=== PATIENT | male | born 1950 | race Caucasian/White ===

== ENCOUNTER 2023-02-08 10:41 | Emergency (ER) | payer MEDICARE, BC, SELFPAY ==
[2023-02-08] VITALS (12 sets, daily range): BP systolic 149–178; BP diastolic 75–93; PULSE 59–73; RESP 14; TEMP 36.4; O2SAT 97–100; BMI 30.4
[2023-02-08 11:11] LABS: Bilirubin Urine UA NEGATIVE (NEGATIVE); Glucose Urine UA NEGATIVE (Negative); Ketones Urine UA NEGATIVE (NEGATIVE); Leukocyte Esterase Urine UA NEGATIVE (NEGATIVE); Nitrite Urine UA NEGATIVE (Negative); Occult Blood Urine UA 2+ (Negative); Protein Urine UA 3+ (Negative); Specific Gravity Urine UA 1.025 (1.000-1.035); Urobilinogen Urine UA 0.2 E.U./dL (0.2)
[2023-02-08 11:14] LABS: Appearance Urine UA OTHER; Color Urine UA RED; RBC Urine >100/HPF (0-5/HPF); WBC Urine 5-10/HPF (0-5/HPF)
[2023-02-08 11:15] LABS: Amorphous Sediment Urine 1+; Bacteria Urine Occasional (0-1); Culture Indicated Urine Specimen Cultured; Squamous Epithelial Cell Urine 1-5 /HPF (0-5/HPF)
--- NOTE | 2023-02-08 11:26 | ED.GENADULT ---
HPI - General Adult General Chief complaint: Urogenital-Male Stated complaint: bleeding possibly from prostate tumor Time Seen by Provider: 02/08/23 10:57 Source: patient Mode of arrival: Ambulatory Limitations: no limitations History of Present Illness HPI narrative: Patient is a 72-year-old male. Not on anticoagulation who is here for evaluation of hematuria. He has had some issues with his bladder and prostate in the past. He is new to the area here. He moved to the area did drive quite a bit yesterday. Does admit that he did not drink a lot of water so that he did not have to urinate as often. He is not having any abdominal pain. He does urinate frequently but does feel like he empties his bladder. No fevers. He did have a cystoscopy in the past this was in September. There was some discussion about a UroLift but since he was moving he felt that he would just follow-up with urology locally. This morning he was at breakfast. He states that he urinated there was quite a bit blood. No clots no pain with urination. He is urinated get since then and had quite a bit of clots. Related Data Previous Rx's Medication Instructions Recorded cephalexin 500 mg capsule 500 mg PO BID 5 days #10 caps 02/08/23 Allergies Allergy/AdvReac Type Severity Reaction Status Date / Time No Known Drug Allergies Allergy Verified 02/08/23 10:53 Review of Systems Review of Systems ROS Unobtainable: All systems reviewed & are unremarkable except as noted in HPI and below Patient History Medical History BPH (benign prostatic hyperplasia) Social History Smoking Status: Never smoker Smoking Status: Never smoker alcohol intake frequency: 0-2 drinks per day Substance Use Type: does not use Exam Initial Vital Signs Initial Vital Signs: Vital Signs Temperature 97.5 F L 02/08/23 10:48 Pulse Rate 66 02/08/23 10:48 Respiratory Rate 14 02/08/23 10:48 Blood Pressure 175/91 H 02/08/23 10:48 Pulse Oximetry 100 02/08/23 10:48 Oxygen Delivery Method Room Air 02/08/23 10:48 Const General: cooperative, comfortable and No ill appearing HENMO Head: normal to inspection and normocephalic Resp Effort & Inspection: normal respiratory effort Auscultation: clear to auscultation bilaterally Cardio Rate: regular rate Rhythm: regular rhythm GI Inspection: normal to inspection Palpation: soft, No firm and No tender Skin General: no rashes or lesions noted Neuro General: patient alert, patient awake, patient oriented x3 and moves all extremities Extrem General: normal to inspection and capillary refill normal Course Orders Ordered: ED Orders 02/08/23 10:55 Urinalysis and Microscopic Stat Urine Culture Stat 02/08/23 11:21 Basic Metabolic Panel Stat Complete Blood Count AUTO DIFF Stat 02/08/23 13:08 Urinalysis and Microscopic Stat Discontinued Medications Sodium Chloride (Normal Saline 0.9%) 1,000 mls @ 1,000 mls/hr IV BOLUS ONE Stop: 02/08/23 11:56 Last Infusion: 02/08/23 13:07 Dose: 0 mls/hr Documented By: Admin: 02/08/23 12:15 Dose: 1,000 mls/hr Documented By: TIFFANI Vital Signs Vital signs: Vital Signs - 8 hr 02/08/23 10:48 02/08/23 11:31 02/08/23 11:45 Temperature 97.5 F L Pulse Rate 66 62 Respiratory Rate 14 Blood Pressure 175/91 H 155/75 H Pulse Oximetry 100 99 Oxygen Delivery Method Room Air 02/08/23 11:45 02/08/23 12:00 02/08/23 12:00 Temperature Pulse Rate 73 68 Respiratory Rate Blood Pressure 153/93 H Pulse Oximetry 98 97 Oxygen Delivery Method Medical Decision Making Lab Data 02/08/23 11:21 02/08/23 11:21 Labs: Lab Results 02/08/23 02/08/23 02/08/23 Range/Units 10:55 11:21 11:21 WBC 5.8 (4.5-11.0) X10^3/uL RBC 5.04 (4.5-5.9) X10^6/uL Hgb 15.4 (13.5-17.5) g/dL Hct 44.9 (41-53) % MCV 89.0 (80-100) fL MCH 30.5 (26-34) PG MCHC 34.2 (30-36) % RDW 13.1 (11.6-14.8) % Plt Count 212 (150-400) X10^3/uL Neut % (Auto) 52.6 (50-75) % Lymph % (Auto) 34.9 (25-40) % [place] % (Auto) 8.2 (3-14) % Eos % (Auto) 3.8 (2-4) % Baso % (Auto) 0.5 (0-2) % Neut # (Auto) 3000 (9014-7885) /uL Lymph # (Auto) 2000 (2882-4240) /uL [place] # (Auto) 500 (0-900) /uL Eos # (Auto) 200 (0-450) /uL Baso # (Auto) 0 (0-100) /uL Sodium 140 (137-145) mmol/L Potassium 4.0 (3.4-5.1) mmol/L Chloride 106 (98-107) mmol/L Carbon Dioxide 27 (22-32) mmol/L BUN 19 (9-20) mg/dL Creatinine 0.90 (0.66-1.25) mg/dL Estimated GFR > 60 (>60) mL/min BUN/Creatinine Ratio 21.1 (6-22) Glucose 99 (80-110) mg/dL Calcium 8.8 (8.4-10.2) mg/dL Urine Color Red Urine Appearance Other Urine pH 7.0 (4.5-8.0) Ur Specific [place] 1.025 (1.000-1.035) Urine Protein 3+ H (Negative) Urine Glucose (UA) Negative (Negative) g/dL Urine Ketones Negative (NEGATIVE) Urine Occult Blood 2+ H (Negative) Urine Nitrate Negative (Negative) Urine Bilirubin Negative (NEGATIVE) Urine Urobilinogen 0.2 (0.2) E.U./dL Ur Leukocyte Esterase Negative (NEGATIVE) Urine RBC >100/hpf H (0-5/HPF) Urine WBC 5-10/hpf H (0-5/HPF) Ur Squamous Epith Cells 1-5 /hpf (0-5/HPF) Amorphous Sediment 1+ Urine Bacteria Occasional (0-1) (None) Ur Culture Indicated? Specimen cultured MDM Narrative Medical decision making narrative: Patient did have hematuria but also white blood cells and bacteria. A bladder scan shows approximately 300 cc of urine in his bladder which he states is ?normal? for him. He is at risk of developing a urinary tract infection because of the urinary retention. Given his hematuria today we will start him on antibiotics. Urine culture was pending at the time of discharge. This was after discussion with him about starting antibiotics today versus waiting until the culture results. He is new to the area. He does need follow-up with Urology. His kidney functions unremarkable. After fluids patient was urinating without any blood. No fevers. We will hold on a Pay[place] catheter for now. He was given return precautions. He expressed understanding and agreement. Discharge Plan Departure Patient Disposition: Home Clinical Impression: Hematoma, Urinary tract infection Instructions: DI for Urinary Tract Infection (UTI), DI for Hematuria Activity Restrictions/Additional Instructions: We are putting you on antibiotics for the presumed urinary tract infection like we discussed. A urine culture was pending at the time of your discharge we will contact you if we need to change this antibiotic. I do recommend that you follow-up with the Urology. Be sure you are staying hydrated. Return to the emergency department for new or worsening symptoms. Prescriptions: New cephalexin 500 mg capsule 500 mg PO BID 5 Days Qty: 10 0RF Referrals: Donaldo Rasheed MD [Physician] - Stand Alone Forms: Patient Portal/API
[2023-02-08 11:30] LABS: Add Manual Diff / Slide Review NO; Basophils Absolute Auto 0 /uL (0-100); Basophils Percent Auto 0.5 % (0-2); Eosinophils Absolute Auto 200 /uL (0-450); Eosinophils Percent Auto 3.8 % (2-4); Hematocrit 44.9 % (41-53); Hemoglobin 15.4 g/dL (13.5-17.5); Lymphocytes Absolute Auto 2000 /uL (1100-4500); Lymphocytes Percent Auto 34.9 % (25-40); Mean Corpuscular HGB Conc 34.2 % (30-36); Mean Corpuscular Hemoglobin 30.5 PG (26-34); Monocytes Absolute Auto 500 /uL (0-900); Monocytes Percent Auto 8.2 % (3-14); Neutrophils Absolute Auto 3000 /uL (1500-7000); Neutrophils Percent Auto 52.6 % (50-75); Platelet Count 212 X10^3/uL (150-400); Red Blood Cell Count 5.04 X10^6/uL (4.5-5.9); Red Cell Distribution Width 13.1 % (11.6-14.8); White Blood Cell Count 5.8 X10^3/uL (4.5-11.0)
[2023-02-08 11:40] LABS: BUN Creatinine Ratio 21.1 (6-22); Blood Urea Nitrogen 19 mg/dL (9-20); Calcium 8.8 mg/dL (8.4-10.2); Carbon Dioxide 27 mmol/L (22-32); Chloride 106 mmol/L (98-107); Estimated Glomerular Filt Rate > 60 mL/min (>60); Glucose 99 mg/dL (80-110); HEMOLYSIS < 15 (0-50); Sodium 140 mmol/L (137-145)
[2023-02-08] MEDS: SODIUM CHLORIDE 0.9% 1,000 ML 1000 ML IV (12:15)
== END 2023-02-08 13:41 | disposition home or self-care (01) ==
PROVIDERS: Emergency Provider Emergency Medicine
DX: N39.0 Urinary tract infection, site not specified (principal); R31.9 Hematuria, unspecified
CPT/HCPCS: 36415; 51798; 80048; 81001; 85025; 87086; 99284

== ENCOUNTER → 2023-02-26 08:42 | Outpatient (CLI) | payer MEDICARE, BC, SELFPAY ==
[2023-02-26 09:59] LABS: Cholesterol 212 mg/dL (140-199); HDL Cholesterol 49 mg/dL (40-60); LDL Cholesterol Calculated 145 mg/dL (<100); Triglycerides 92 mg/dL (35-150)
[2023-02-26 10:28] LABS: TSH w/ Reflex to FT4 0.62 uIU/mL (0.47-4.68)
[2023-03-01 07:47] LABS: PSA Free % 23.3 % (.); PSA, Total 2.7 ng/mL (0.0-4.0)
[2023-03-02 08:49] LABS: x Labcorp Estim. Avg Glu (eAG) 117 mg/dL (.); x Labcorp Hemoglobin A1c 5.7 % (4.8-5.6)
== END ==
PROVIDERS: PCP Family Medicine; Referring Provider Specialist; Visit Provider Specialist
DX: I10 Essential (primary) hypertension (principal); E78.5 Hyperlipidemia, unspecified; R97.20 Elevated prostate specific antigen [PSA]
CPT/HCPCS: 80061; 83036; 84153; 84154; 84443

== ENCOUNTER → 2023-03-12 08:01 | Outpatient (CLI) | payer MEDICARE, BC, SELFPAY | PROVIDERS: PCP Family Medicine; Referring Provider Family Medicine; Visit Provider Family Medicine | DX: R00.2 Palpitations (principal); R31.0 Gross hematuria; N40.1 Benign prostatic hyperplasia with lower urinary tract symptoms; N13.8 Other obstructive and reflux uropathy | CPT/HCPCS: 52000; 81002; 87086; 93246; 99215 ==

== ENCOUNTER → 2023-03-12 08:23 | Outpatient (CLI) | payer MEDICARE, BC, SELFPAY | PROVIDERS: PCP Family Medicine; Visit Provider Specialist | DX: R31.0 Gross hematuria (principal) | CPT/HCPCS: 87086 ==

== ENCOUNTER → 2023-04-08 14:34 | Outpatient (CLI) | payer MEDICARE, BC, SELFPAY ==
--- NOTE | 2023-04-08 | DI.US.S_ITS ---
PROCEDURE: US CAROTID DOPPLER BI INDICATIONS: VISUAL DISTURBANCES TECHNIQUE: Color and pulse Doppler interrogation was performed of both carotid systems, with image documentation and velocity measurements. COMPARISON: None. FINDINGS: Stenosis calculations are based on SRU (Society of Radiologists in Ultrasound) criteria. Right side: Brachial blood pressure: 140/79 mm Hg. Common carotid artery peak systolic velocity: 128 cm/sec. Internal carotid artery peak systolic velocity: 145 cm/sec. Internal carotid artery end diastolic velocity: 54 cm/sec. External carotid artery peak systolic velocity: 166 cm/sec. ICA/CCA peak systolic ratio: 1.2 . Marie scale imaging description: Extensive atherosclerotic calcification at the bifurcation Percent internal carotid artery stenosis: 50-69%. Vertebral artery: Flow direction is antegrade. Left side: Brachial blood pressure: 130/76 mm Hg. Common carotid artery peak systolic velocity: 120 cm/sec. Internal carotid artery peak systolic velocity: 99 cm/sec. Internal carotid artery end diastolic velocity: 28 cm/sec. External carotid artery peak systolic velocity: 124 cm/sec. ICA/CCA peak systolic ratio: 0 point . Marie scale imaging description: Echogenic plaques at the bifurcation. Percent internal carotid artery stenosis: Less than 50%. Vertebral artery: Flow direction is antegrade. IMPRESSION: 1. 50-69% right internal carotid artery stenosis. There is extensive atherosclerotic calcification at the right carotid bifurcation. Consider MR or CT angiogram for further evaluation if clinically indicated. 2. Less than 50% left internal carotid stenosis. 3. Antegrade vertebral artery flow bilaterally. Dictated by: Rodo Heath M.D. on 04/09/2023 at 14:34 Approved by: Rodo Heath M.D. on 04/09/2023 at 14:37
== END ==
PROVIDERS: PCP Family Medicine; Referring Provider Optometrist; Visit Provider Optometrist
DX: I65.23 Occlusion and stenosis of bilateral carotid arteries (principal); H53.8 Other visual disturbances
CPT/HCPCS: 93880

== ENCOUNTER → 2023-07-17 09:45 | Outpatient (CLI) | payer MEDICARE, BC, SELFPAY ==
[2023-07-17 10:34] LABS: Influenza A - CEPHEID Flu A NEGATIVE (NEGATIVE); Influenza B - CEPHEID Flu B NEGATIVE (NEGATIVE); Respiratory Syncytial Virus Negative (Negative)
[2023-07-17 10:37] LABS: COVID-19 CEPHEID 4-PLEX PCR Negative (Negative)
== END ==
PROVIDERS: PCP Family Medicine; Visit Provider Student in an Organized Health Care Education/Training Program
DX: J02.9 Acute pharyngitis, unspecified (principal)
CPT/HCPCS: 0241U; 87070

== ENCOUNTER → 2023-09-22 13:45 | Outpatient (CLI) | payer MEDICARE, BC, SELFPAY ==
--- NOTE | 2023-09-22 | DI.US.S_ITS ---
PROCEDURE: US ARTERIAL DUPLEX LE BI INDICATIONS: Shortness of breath and bilateral leg pain TECHNIQUE: Color and pulse Doppler interrogation was performed of both lower extremity arterial systems, with image documentation. COMPARISON: None. FINDINGS: Right lower extremity: Common femoral artery: 124.4 cm/sec, with triphasic flow. Deep femoral artery: 70.5 cm/sec, with triphasic flow. Proximal superficial femoral artery: 100.9 cm/sec, with triphasic flow. Mid superficial femoral artery: 85.5 cm/sec, with triphasic flow. Distal superficial femoral artery: 82.9 cm/sec, with triphasic flow. Popliteal artery: 65.4 cm/sec, with triphasic flow. Posterior tibial artery: 32.4 cm/sec, with triphasic flow. Anterior tibial artery/dorsalis pedis: 25.5 cm/sec, with biphasic flow. Marie-scale imaging description: No focal hemodynamically significant stenosis. Left lower extremity: Common femoral artery: 141.3 cm/sec, with triphasic flow. Deep femoral artery: 44.9 cm/sec, with triphasic flow. Proximal superficial femoral artery: 84.7 cm/sec, with triphasic flow. Mid superficial femoral artery: 68.9 cm/sec, with triphasic flow. Distal superficial femoral artery: 74.7 cm/sec, with triphasic flow. Popliteal artery: 80.5 cm/sec, with triphasic flow. Posterior tibial artery: 42.7 cm/sec, with biphasic flow. Anterior tibial artery/dorsalis pedis: 90.2 cm/sec, with biphasic flow. Marie-scale imaging description: No focal hemodynamically significant stenosis. IMPRESSION: No focal hemodynamically significant stenosis of the bilateral lower extremities. Dictated by: Judy Bliss M.D. on 09/22/2023 at 17:07 Approved by: Judy Bliss M.D. on 09/22/2023 at 17:09
== END ==
PROVIDERS: PCP Family Medicine; Referring Provider Internal Medicine Cardiovascular Disease; Visit Provider Internal Medicine Cardiovascular Disease
DX: R06.02 Shortness of breath (principal); M79.604 Pain in right leg; M79.605 Pain in left leg
CPT/HCPCS: 93925

== ENCOUNTER → 2023-10-05 13:07 | Outpatient (CLI) | payer MEDICARE, BC, SELFPAY ==
[2023-10-05 14:37] LABS: Prostate Specific Antigen 1.51 ng/mL (0.10-4.00)
== END ==
PROVIDERS: PCP Family Medicine; Referring Provider Specialist; Visit Provider Specialist
DX: N40.1 Benign prostatic hyperplasia with lower urinary tract symptoms (principal); N13.8 Other obstructive and reflux uropathy
CPT/HCPCS: 36415; 84153

== ENCOUNTER → 2023-10-12 09:20 | Outpatient (CLI) | payer MEDICARE, BC, SELFPAY ==
--- NOTE | 2023-10-12 | DI.RAD.S_ITS ---
PROCEDURE: XR HIP W PEL IF DONE [place] MIN 4V INDICATIONS: LOW BACK PAIN AND HIP PAIN TECHNIQUE: AP pelvis with lateral view(s) of the bilateral hip(s). COMPARISON: None. FINDINGS: Bones: No fractures or dislocations. Pelvic ring appears intact. No suspicious bony lesions. Mild bilateral hip degenerative change. Soft tissues: The visualized bowel gas pattern is normal. No suspicious soft tissue calcifications. IMPRESSION: Mild bilateral hip degenerative change. No evidence acute bony abnormality. If clinical suspicion and/or symptoms persist, further assessment with repeat plain films, or advanced imaging (e.g., CT, MRI, or bone scan) may be helpful for further assessment. Dictated by: Toby Ceja M.D. on 10/12/2023 at 10:18 Approved by: Toby Ceja M.D. on 10/12/2023 at 10:19
--- NOTE | 2023-10-12 09:22 | DI.RAD.S_ITS ---
PROCEDURE: XR LUMBAR SPINE 2-3V INDICATIONS: LOW BACK AND HIP PAIN TECHNIQUE: 3 views of the lumbar spine were acquired. COMPARISON: None. FINDINGS: Bones: 5 [id number] vertebrae are present. There is normal bony alignment. No vertebral body compression fractures. No suspicious bony lesions. Multilevel degenerative disc space loss. Prominent lower lumbar facet arthropathy. Soft tissues: Overlying bowel gas pattern is normal. No suspicious soft tissue calcifications. IMPRESSION: Multilevel degenerative disc disease and prominent lower lumbar facet arthropathy. No acute bony abnormality. Comment: Lumbar spine MRI may be helpful. Dictated by: Toby Ceja M.D. on 10/12/2023 at 10:19 Approved by: Toby Ceja M.D. on 10/12/2023 at 10:20
== END ==
PROVIDERS: PCP Family Medicine; Referring Provider Family Medicine; Visit Provider Family Medicine
DX: M47.816 Spondylosis without myelopathy or radiculopathy, lumbar region (principal); M51.36 Other intervertebral disc degeneration, lumbar region; M54.50 Low back pain, unspecified; M16.10 Unilateral primary osteoarthritis, unspecified hip
CPT/HCPCS: 72100; 73522

== ENCOUNTER 2023-12-23 14:30 | Outpatient (RCR) | payer MEDICARE, BC, SELFPAY ==
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
== END 2024-03-28 14:34 | disposition home or self-care (01) ==
LOC: PHYS 14:30
PROVIDERS: Family Provider Family Medicine; PCP Family Medicine; Referring Provider Family Medicine; Visit Provider Family Medicine
DX: M16.10 Unilateral primary osteoarthritis, unspecified hip (principal); M54.50 Low back pain, unspecified; R29.3 Abnormal posture; R53.1 Weakness; R26.2 Difficulty in walking, not elsewhere classified
CPT/HCPCS: 97110; 97140; 97162; 97535

== ENCOUNTER → 2024-03-18 07:26 | Outpatient (CLI) | payer MEDICARE, BC, SELFPAY ==
[2024-03-18 09:53] LABS: Add Manual Diff / Slide Review NO; Basophils Absolute Auto 0 /uL (0-100); Basophils Percent Auto 0.4 % (0-2); Eosinophils Absolute Auto 100 /uL (0-450); Eosinophils Percent Auto 2.1 % (2-4); Hemoglobin 15.8 g/dL (13.5-17.5); Lymphocytes Absolute Auto 2400 /uL (1100-4500); Lymphocytes Percent Auto 35.4 % (25-40); Mean Corpuscular HGB Conc 34.3 % (30-36); Mean Corpuscular Hemoglobin 31.3 PG (26-34); Mean Corpuscular Volume 91.2 fL (80-100); Monocytes Absolute Auto 500 /uL (0-900); Monocytes Percent Auto 7.5 % (3-14); Neutrophils Absolute Auto 3700 /uL (1500-7000); Neutrophils Percent Auto 54.6 % (50-75); Platelet Count 243 X10^3/uL (150-400); Red Blood Cell Count 5.05 X10^6/uL (4.5-5.9); Red Cell Distribution Width 12.8 % (11.6-14.8); White Blood Cell Count 6.9 X10^3/uL (4.5-11.0)
[2024-03-18 09:56] LABS: Hemoglobin A1C% w Est Avg Glu 5.4 % (4.0-6.0)
[2024-03-18 10:12] LABS: Alanine Aminotransferase 39 IU/L (<50); Albumin 4.4 g/dL (3.5-5.0); Alkaline Phosphatase 65 U/L (38-126); Aspartate Aminotransferase 26 IU/L (17-59); Bilirubin Total 0.8 mg/dL (0.2-1.3); Blood Urea Nitrogen 16 mg/dL (9-20); Calcium 8.9 mg/dL (8.4-10.2); Carbon Dioxide 27 mmol/L (22-32); Chloride 107 mmol/L (98-107); Cholesterol 201 mg/dL (140-199); Estimated Glomerular Filt Rate > 60 mL/min (>60); Globulin 2.2 g/dL (1.7-4.1); Glucose 103 mg/dL (80-110); HDL Cholesterol 60 mg/dL (40-60); HEMOLYSIS < 15 (0-50); LDL Cholesterol Calculated 118 mg/dL (<100); Potassium 4.3 mmol/L (3.4-5.1); Sodium 141 mmol/L (137-145); Total Protein 6.6 g/dL (6.3-8.2); Triglycerides 114 mg/dL (35-150)
== END ==
LOC: LAB 07:28
PROVIDERS: Family Provider Family Medicine; PCP Family Medicine; Referring Provider Family Medicine; Visit Provider Family Medicine
DX: H53.121 Transient visual loss, right eye (principal); R73.01 Impaired fasting glucose; E78.5 Hyperlipidemia, unspecified; I10 Essential (primary) hypertension
CPT/HCPCS: 36415; 80053; 80061; 83036; 85025

== ENCOUNTER → 2024-05-02 13:33 | Outpatient (CLI) | payer MEDICARE, BC, SELFPAY ==
[2024-05-02 16:08] LABS: Prostate Specific Antigen 1.37 ng/mL (0.10-4.00)
== END ==
PROVIDERS: Family Provider Family Medicine; PCP Family Medicine; Referring Provider Specialist; Visit Provider Specialist
DX: R97.20 Elevated prostate specific antigen [PSA] (principal)
CPT/HCPCS: 36415; 84153

== ENCOUNTER → 2024-07-07 12:31 | Outpatient (CLI) | payer MEDICARE, BC, SELFPAY | LOC: RESP 12:32 | PROVIDERS: Family Provider Family Medicine; PCP Family Medicine; Referring Provider Family Medicine; Visit Provider Family Medicine | DX: J45.998 Other asthma (principal); Z86.16 Personal history of COVID-19 | CPT/HCPCS: 94060; 94729 ==

== ENCOUNTER → 2024-07-28 10:29 | Outpatient (CLI) | payer MEDICARE, BC, SELFPAY ==
--- NOTE | 2024-07-28 10:32 | DI.RAD.S_ITS ---
PROCEDURE: XR FOOT RT MIN 3V INDICATIONS: FOOT PAIN TECHNIQUE: 3 views of the foot were acquired. COMPARISON: None. FINDINGS: Bones: No fractures or dislocations. No suspicious bony lesions. There is loss of the longitudinal arch. Small plantar calcaneal spur. Soft tissues: No tibiotalar joint effusion. Achilles tendon appears normal. IMPRESSION: Pes planus. Calcaneal spur. Approved by: Marc Whitfield M.D. on 07/28/2024 at 14:41
== END ==
LOC: RAD 10:31
PROVIDERS: Family Provider Family Medicine; PCP Family Medicine; Referring Provider Podiatrist Foot & Ankle Surgery; Visit Provider Podiatrist Foot & Ankle Surgery
DX: M21.41 Flat foot [pes planus] (acquired), right foot (principal); M77.31 Calcaneal spur, right foot; M79.671 Pain in right foot
CPT/HCPCS: 73630

== ENCOUNTER → 2024-08-01 07:50 | Outpatient (CLI) | payer MEDICARE, BC, SELFPAY ==
[2024-08-01 09:51] LABS: Cholesterol 214 mg/dL (140-199); HDL Cholesterol 62 mg/dL (40-60); LDL Cholesterol Calculated 130 mg/dL (<100); Triglycerides 111 mg/dL (35-150)
== END ==
PROVIDERS: Family Provider Family Medicine; PCP Family Medicine; Referring Provider Nurse Practitioner; Visit Provider Nurse Practitioner
DX: E78.5 Hyperlipidemia, unspecified (principal)
CPT/HCPCS: 36415; 80061

== ENCOUNTER 2025-01-04 07:43 | Day surgery (SDC) | payer MEDICARE, BC, SELFPAY ==
[2025-01-04 08:05] VITALS: BP 166/82; PULSE 76; RESP 14; TEMP 36.3; O2SAT 100
[2025-01-04] MEDS: LACTATED RINGERS 1,000 ML 42 ML IV (08:21)
--- NOTE | 2025-01-04 08:58 | PM.HP.IH.1 ---
History of Present Illness History of Present Illness Date Patient Seen: 01/04/25 Chief complaint: Screening Colonoscopy [facility] Medical History (Updated 09/27/24 @ 08:30 by Melecio Kline DO) Secondhand smoke exposure Nocturia more than twice per night History of gross hematuria Transient visual loss of right eye Encounter for subsequent annual wellness visit (AWV) in Medicare patient Carotid artery calcification SVT (supraventricular tachycardia) Vision disorder Rheumatoid arthritis (~2014) Polymyalgia rheumatica (~2014) Shoulder pain (~1986) Chronic back pain Mumps Measles Chicken pox Prostate nodule Colon polyps (~1979) Myocardial infarction Skin cancer (~1989) Hyperlipidemia Benign essential HTN BPH w urinary obs/LUTS (~1964) GERD (gastroesophageal reflux disease) (~1989) Coronary artery disease involving [place] heart (~1969) Cancer, face Asthma (~1979) Arthritis BPH (benign prostatic hyperplasia) Surgical History (Updated 09/06/24 @ 13:28 by Donaldo Rasheed MD) Anesthesia History of shoulder surgery H/O vasectomy History of prostate surgery History of back surgery (~1988) Family History Mother Cancer Father Hyperlipidemia CAD in [place] artery Social History marital status: number of children: 3 Smoking Status: Never smoker alcohol intake: current Meds Home Medications and Allergies Home Medications Medication Instructions Recorded Confirmed Type evolocumab 140 mg/mL subcutaneous mg SUBCUT Q2W 10/12/23 09/27/24 History pen injector (Lupe Leroy) finasteride 5 mg tablet 5 mg PO DAILY #90 tabs 05/30/24 09/27/24 Rx fluticasone 500 mcg-salmeterol 50 inhalation 09/27/24 09/27/24 History mcg/dose blistr powdr for inhalation metoprolol succinate 25 mg 25 mg PO DAILY #100 tabs 09/27/24 01/04/25 Rx tablet,extended release 24 hr Allergies Allergy/AdvReac Type Severity Reaction Status Date / Time No Known Drug Allergies Allergy Verified 01/04/25 07:59 Exam Vital Signs (past 8 hours): - 01/04/25 08:05 Temperature 97.3 F L Pulse Rate 76 Respiratory Rate 14 Blood Pressure 166/82 H Pulse Oximetry 100 Oxygen Delivery Method Room Air Oxygen Delivery Method Room Air Narrative Exam Narrative: Oropharynx free of lesions Chest clear to auscultation percussion Cardiac exam reveals no S3 or murmur Assessment & Plan Assessment & Plan narrative: History of colon polyps need for follow-up colonoscopy. Last performed 3 years ago. Risks, benefits, alternatives have been explained. Patient is cleared by Cardiology and felt to be low risk. He has an intermittent irregular heartbeat Time-Based Coding :: [TOTAL MINUTES] spent with patient and on the chart (including review of chart, obtaining history, exam, reviewing outside data, placing orders, documenting exam and treatment plan, and counseling patient) on [DATE]. [employer] Document charge(s): No
--- NOTE | 2025-01-04 09:40 | PM.OP.COLON ---
Operative Date/Time/Diagnoses Date of procedure: 01/04/25 Pre-op diagnosis: History of colon polyps last colonoscopy 3 years ago Post-op diagnosis: same Procedure & Clinicians Study performed: Colonoscopy Same procedure as scheduled: Yes Indications: History of colon polyps Surgeon: Alise Palm Procedure Notes Procedure in detail: After informed consent was obtained the patient was placed in left lateral decubitus position. The video colonoscope was introduced the rectum slowly advanced cecum. Preparation was good. On slow withdrawal mucosa was carefully examined. The scope was removed. The patient tolerated procedure well. Blood loss none Complications none Sedation mac Findings 1. Normal colonoscopy to cecum This will be the patient's last colonoscopy.
[2025-01-04 10:01] VITALS: BP 100/81; PULSE 70; RESP 14; TEMP 36.6; O2SAT 93
[2025-01-04 10:06] VITALS: BP 111/60; PULSE 61; RESP 16; O2SAT 94
[2025-01-04 10:13] VITALS: BP 104/68; PULSE 73; RESP 14; O2SAT 95
[2025-01-04 10:16] VITALS: BP 117/67; PULSE 69; RESP 14; O2SAT 96
== END 2025-01-04 10:29 | disposition home or self-care (01) ==
PROVIDERS: Family Provider Family Medicine; PCP Family Medicine; Referring Provider Internal Medicine Gastroenterology; Visit Provider Internal Medicine Gastroenterology
PROC: 0DJD8ZZ Inspection of Lower Intestinal Tract, Via Natural or Artificial Opening Endoscopic (ICD-10-PCS; CPT 45378; principal; 2025-01-04 09:00)
DX: Z12.11 Encounter for screening for malignant neoplasm of colon (principal); Z86.0100 Personal history of colon polyps, unspecified
CPT/HCPCS: G0105; J2704